=== PATIENT | male | born 1985 | race Caucasian/White ===

== ENCOUNTER 2016-10-03 16:28 | Emergency (ER) | payer OTHER ==
[~2016-10-03] VITALS: Ht 198.1 cm; Wt 156.8 kg
[2016-10-03] VITALS (7 sets, daily range): BP systolic 112–128; BP diastolic 48–83; PULSE 71–130; RESP 12–18; O2SAT 93–95
[~2016-10-03 16:28] MED LIST: AMLO-39 PO; Clindamycin Hcl PO; LISI-608 PO; LORA-303 PO; MELA1TAB11 PO; Nicotine TOPICAL; Trazodone PO; WARF10TA PO
--- NOTE | 2016-10-03 16:41 | ED.REPORT ---
HPI-Chest Pain Under 40 Date of Service Oct 03, 2016 ED Provider: The patient is a 30 year old obese male with history of pulmonary embolisms ( 2012 and 2014) on Coumadin, hypertension, anxiety, and viral meningitis x2, who presents to the emergency department complaining of chest pain that began earlier this morning. The patient states he was not feeling well throughout the week. He has not been eating as much as normal and has felt tired and fatigued. On Tuesday he had a syncope episode after standing. As he was falling to the ground he noticed a severe headache. He felt okay yesterday but was not able to sleep last night. This morning his headache was severe and he developed left- sided chest tightness. He tried to rest throughout the day. He got up to use the restroom this afternoon and the next thing he remembers is waking up in the bathroom with emesis around him. He is unsure if he obtained any injuries during the syncopal episodes. After his first pulmonary embolism he was on Warfarin for about a year and was not on Warfarin when he had the second pulmonary embolism. His last INR check was about 1-2 weeks ago and was in the normal range. Nursing Notes Stated Complaint: CHEST PAIN, PASSED OUT, HX OF PE Chief Complaint: Chest Pain Nursing Notes Reviewed: Yes Allergies: Coded Allergies: cefaclor (Verified Allergy, Intermediate, Rash,Itching,, 07/01/14) Scheduled ([Nicotine]) 1 EA TDSY 1 EA TOPICAL DAILY Lisinopril/HCTZ 20-25 mg (Zestoretic 20-25 mg) 1 Each Tablet 1 EACH PO DAILY Quetiapine Fumarate (Quetiapine Fumarate) 50 Mg Tablet 75 MG PO HS Venlafaxine ER (Venlafaxine ER) 150 Mg Cap.er.24h 150 MG PO DAILY Warfarin Sodium (Coumadin) 10 Mg Tablet 10 MG PO DAILY EXC tuesday Warfarin Sodium (Warfarin Sodium) 10 Mg Tablet 15 MG PO TUESDAY Scheduled PRN Naltrexone (Naltrexone) 50 Mg Tablet 50 MG PO PRN PRN PRN DRINKING General Time Seen by MD: 16:41 Chief Complaint Chest pain Hx Obtained From: Patient, Other family... (mother and father) Arrived By: Walk-in Sudden in Onset?: Yes Onset Occurred: 5 - 8 hours ago Symptom Duration: Since onset Location: : Chest left Quality: Painful Severity: Current: Moderate Severity: Maximum: Severe Recent Healthcare: No recent doctor visit, No recent hospitalization Similar Sx Previous: Yes Risk Factors PERC Rule Heart rate 100 or over, Prior Hx of DVT/PE PERC Result: One or more crit "Yes", PERC rule not satisfied Past Medical History Past Medical History Hx of PE 2011 and Jun 2014 Obese Hx of viral meningitis x2 Anxiety Reports: Hypertension Past Surgical History Knee surgery Family History No diabetes in the family Possible heart disease history in family Smoking History Never Smoker Social History Chews tobacco. Hx of cocaine abuse, has been clean for several months. Alcohol Use: In recovery Drug Use: In recovery, THC Other Social History: Smokeless tobacco, Good social support, Local resident Ambulatory Status Independent Review of Systems Constitutional: Reports: Fatigue Cardiovascular: Reports: Chest pain GI: Reports: Nausea, Vomiting Neurologic: Reports: Change LOC, Dizziness, Headache, Syncope Complete sys rev & neg: except as marked. Physical Exam Initial Vital Signs Vital Signs (First) Date Time Temp Pulse Resp B/P Pulse Ox O2 Delivery O2 Flow Rate FiO2 10/03/16 16:31 37.9 130 115/83 93 10/03/16 16:40 12 Room Air 10/03/16 18:02 2 Initial VS: Reviewed Head / Eyes: Atraumatic, Normocephalic, PERRL ENT: Mucous membranes moist, Conjunctiva normal, No scleral icterus Abdomen / GI: Soft, Non-tender, No guarding, No rebound, No distention Lymphatic: No lymphadenopathy Extremities: Vascular intact, Neuro intact, No swelling, No tenderness Neurologic: Alert, Oriented, Nonfocal Psychiatric: Mood/affect normal, Behavior normal, Normal thought content General/Constitutional: Awake, Alert, Cooperative Respiratory / Chest: Atraumatic, Breath sounds NL, Breath sounds = bilat, No respiratory distress, No rales, No rhonchi, No wheezing, No chest tenderness Cardiovascular: Regular rhythm, Heart sounds NL, No murmurs, No rubs, Pulses = bilaterally Heart Rate / Rhythm: Positive: Tachycardia Meningeal Signs / ROM: Positive: Kernig's positive Skin: Color NL Rash / Lesion Notes: Scattered excoriated lesions Interpretation & Diagnostics Lab Results Interpretation Result Diagram: 10/03/16 1645 10/03/16 1645 Test 10/03/16 16:45 10/03/16 21:49 10/04/16 00:00 White Blood Count 7.4th/mm3 (3.8-10.1) Red Blood Count 5.14mil/mm3 (4.40-5.80) Hemoglobin 14.5g/dL (13.8-17.2) Hematocrit 43.2% (41.0-50.0) Mean Corpuscular Volume 84.0fL (81-100) Mean Corpuscular Hemoglobin 28.2pg (27.0-35.0) Mean Corpuscular Hemoglobin Concent 33.6% (32.0-37.0) Red Cell Distribution Width 13.4% (12.3-15.4) Platelet Count 213bil/L (150-400) Neutrophils (%) (Auto) 83.5% (40-74) Lymphocytes (%) (Auto) 11.7% (14-46) Monocytes (%) (Auto) 3.9% (4-12) Eosinophils (%) (Auto) 0.3% (0-5) Basophils (%) (Auto) 0.1% (0-3) Prothrombin Time 14.8sec (8.1-12.5) Prothromb Time International Ratio 1.37ratio Sodium Level 134mEq/L (134-144) Potassium Level 3.8mEq/L (3.5-5.2) Chloride Level 95mEq/L (97-108) Carbon Dioxide Level 23mmol/L (18-29) Blood Urea Nitrogen 10mg/dL (6-20) Creatinine 1.28mg/dL (0.76-1.27) Estimat Glomerular Filtration Rate 70mL/min (>59) Glucose Level 134mg/dL (60-99) Calcium Level 8.9mg/dL (8.5-10.1) Magnesium Level 1.5mg/dL (1.6-2.6) Total Bilirubin 0.7mg/dL (0.0-1.2) Aspartate Amino Transf (AST/SGOT) 22U/L (0-50) Alanine Aminotransferase (ALT/SGPT) 29U/L (0-44) Alkaline Phosphatase 74U/L (25-150) Troponin T < 0.010ug/L (0.0-0.011) Total Protein 7.4g/dL (6.4-8.4) Albumin 4.0g/dL (3.4-5.0) Hold Price Top Tube Received (Received) CSF Appearance Clear (CLEAR) CSF Color Colorless (COLORLESS) CSF WBC 0/mm3 (0-5) CSF RBC 375/mm3 CSF Mononuclear WBCs % CSF Polynuclear WBCs % CSF Other Cells ECG Interpretation ECG Interpretation: Sinus tachycardia with a rate of 116 Time: 16:44 Interpreted by: ED physician X-Ray Chest Interpretation Chest Xray Interpretation: No acute disease. Interpretation / Wet Read by: Interpret - Radiologist CT Head Interpretation IMPRESSION: No intracranial abnormality. Read by Dr. Arash Nunez CT Chest Interpretation No pulmonary embolism. No acute consolidation. Study type: CT pulm angiogram Interpretation / Wet Read by: Interpret - Radiologist Re-Eval/Medical Decision Source of Hx: Old records Re-Evaluation/Progress #1: Time of Eval: 16:58 Re-Evaluation/Progress Note: Discussed plan for workup. Re-Evaluation/Progress #2: Time of Eval: 19:37 Re-Evaluation/Progress Note: Discussed results and plan for lumbar puncture. Will call radiologist. Re-Evaluation/Progress #3: Time of Eval: 22:17 Re-Evaluation/Progress Note: Rechecked the patient. His headache is still severe. Discussed plan for additional medication. Re-Evaluation/Progress #4: Time of Eval: 22:54 Re-Evaluation/Progress Note: Rechecked the patient. He is resting comfortably. He still complains of a severe headache. Discussed plan for [facility] transfer [place] consult. The patient will either be admitted here or transferred to [facility]. Consultation #1: Requested Call at: 22:58 Call Returned at: 23:07 Note: Spoke with [facility]. Dr. Genaro Brewer will call back. Consultation #2: Call Returned at: 23:59 Systems Security Analyst: Accepts admit Note: Daniella recommends transfer to [facility] [place] for further eval. Counseled Regarding: Diagnosis, Lab results Discharge & Departure Primary Impression: Subarachnoid hemorrhage Additional Impression: Meningitis Disposition: Transfer, Acute Care Facility Receiving Hospital: [facility] Discharge Condition All VS Reviewed: Yes Condition: Stable Referrals: Triston Young MD (PCP) Crit Care Except Billable Proc Time Spent: 30-74 minutes Services Performed: Patient management by me, Time spent at bedside, Reviewing test results, Reviewing imaging, Discussing patient care, Documentation in record, Time with [facility]/surrogate Scribe Attestation Portions of this note were transcribed by Leticia Bolanos. I, Dr. Toribio personally performed the history, physical exam and medical decision-making; I reviewed and confirmed the accuracy of the information in the transcribed note. Signed by: Benji Hudson, 10/03/2016 at 0001. copies to: Triston Young MD, Kirk H MD Oct 03, 2016 16:41 Leticia Bolanos Oct 03, 2016 16:45
[2016-10-03 16:57] LABS: BASOPHILS % (AUTO) 0.1 % (0-3); EOSINOPHILS % (AUTO) 0.3 % (0-5); MONOCYTES % (AUTO) 3.9 % (4-12); Mean Corpuscular Hemoglobin 28.2 pg (27.0-35.0); NEUTROPHILS % (AUTO) 83.5 % (40-74); Platelet Count 213 bil/L (150-400)
[2016-10-03] MEDS ORDERED: VENL150C98 PO (17:02)
[2016-10-03] MEDS ORDERED: NALT50TA PO (17:02)
[2016-10-03] MEDS ORDERED: QUET50TA55 PO (17:02)
[2016-10-03] MEDS ORDERED: WARF10TA4 PO (17:02)
[2016-10-03] MEDS ORDERED: Acetaminophen IV 1,000 MG in IV Premix 1 EACH IV ONE (17:05)
[2016-10-03] MEDS: HYDROmorphone 1 mg/mL Inj IVPUSH PRN ×2 (17:14→20:00)
[2016-10-03 17:29] LABS: INR 1.37 ratio
[2016-10-03 17:35] LABS: Magnesium 1.5 mg/dL (1.6-2.6)
[2016-10-03 17:38] LABS: TROPONIN T < 0.010 ug/L (0.0-0.011)
[2016-10-03] MEDS ORDERED: Ondansetron 2 mg/mL 2 mL Inj ONE (18:10)
[2016-10-03] MEDS ORDERED: 0.9% Sodium Chloride 1,000 ML IV ONE ×2 (19:37→22:19)
[2016-10-03] MEDS: Ondansetron 2 mg/mL 2 mL Inj IVPUSH PRN (20:06)
[2016-10-03 22:18] LABS: APPEARANCE,CSF CLEAR (CLEAR); COLOR,CSF COLORLESS (COLORLESS); WHITE BLOOD CELL,CSF 0 /mm3 (0-5)
[2016-10-03 22:19] LABS: APPEARANCE,CSF CLEAR (CLEAR); COLOR,CSF COLORLESS (COLORLESS); WHITE BLOOD CELL,CSF 0 /mm3 (0-5)
[2016-10-03] MEDS ORDERED: Dexamethasone 10 mg/mL Inj IVPUSH ONE (22:20)
[2016-10-03] MEDS ORDERED: Haloperidol 5 mg/mL Inj IVPUSH ONE (22:20)
[2016-10-03] MEDS ORDERED: MetoCLOpramide 5 mg/mL 2 mL Inj IVPUSH ONE (22:20)
[2016-10-03] MEDS ORDERED: cefTRIAXone Inj 2,000 MG in Dextrose 5% Minibag Plus 50 ML IV ONE (22:55)
[2016-10-04] MEDS: Ondansetron 2 mg/mL 2 mL Inj IVPUSH PRN (00:35)
[2016-10-04 00:52] VITALS: BP 145/81; PULSE 84; RESP 15; O2SAT 97
--- NOTE | 2016-10-04 06:01 | DRSVH ---
PROCEDURE: CT BRAIN WITHOUT CONTRAST ([id number]) INDICATIONS: syncope, hx. of PE TECHNIQUE: Noncontrast 4.5 mm thick angled axial sections acquired from the foramen magnum to the vertex, with c oronal reformats. COMPARISON: None. FINDINGS: Image quality: Excellent. CSF spaces: Basal cisterns are patent. No extra-axial fluid collections. Ventricles are normal in size and shape. Brain: No midline shift. No intracranial masses or hemorrhage. Boss-white matter interface is norm al. Skull and face: Calvarium and visualized facial bones are intact, without suspicious lesions. Sinuses: Mild left maxillary sinus disease IMPRESSION: No acute intracranial process Dictated by: Arash Nunez M.D. on 10/03/2016 at 19:00 Approved by: Arash Nunez M.D. on 10/03/2016 at 19:02
--- NOTE | 2016-10-04 06:01 | DRSVH ---
PROCEDURE: CT ANGIO CHEST PULMONARY EMBOLISM ([id number]) INDICATIONS: syncope, hx. of PE TECHNIQUE: After the administration of intravenous contrast, 2 mm thick sections acquired from the pulmonary api [place] to the posterior costophrenic angles. 3-dimensional maximum intensity projection (MIP) coronal a nd sagittal reformats were then acquired through the thorax. For radiation dose reduction, the follo wing was used: automated exposure control, adjustment of mA and/or kV according to patient size. COMPARISON: None. FINDINGS: Image quality: Suboptimal due to heterogeneous opacification of the pulmonary arteries Pulmonary arteries: Pulmonary arteries are normal in size, and demonstrate no gross intraluminal jinny ling defects to suggest central pulmonary embolism, however limited evaluation of the segmental level pulmonary arteries due to heterogeneous contrast opacification. Lungs and pleura: Lungs are clear. There is scattered atelectasis. No pleural effusions or pneumotho rax. Central and peripheral airways are patent. Mediastinum: Heart size is normal, without pericardial effusion. No mediastinal or hilar adenopathy . Thoracic aorta is normal in caliber and enhancement. Esophagus is normal in caliber, without hiat al hernia. Bones and chest wall: No suspicious bony lesions. Ribs and thoracic spine appear intact throughout. Thyroid gland unremarkable. No axillary or supraclavicular adenopathy. Abdomen: Visualized upper abdominal solid organs appear normal in the early arterial phase of enhanc ement. IMPRESSION: No pulmonary embolism. No acute consolidation. Dictated by: Arash Nunez M.D. on 10/03/2016 at 19:12 Approved by: Arash Nunez M.D. on 10/03/2016 at 19:15
--- NOTE | 2016-10-04 06:01 | DRSVH ---
PROCEDURE: X-RAY CHEST ONE VIEW, PORTABLE ([id number]) INDICATIONS: CHEST PAIN TECHNIQUE: One view of the chest was acquired. COMPARISON: None. FINDINGS: Surgical changes and devices: None. Lungs and pleura: No pleural effusions or pneumothorax. Lungs are clear. Mediastinum: Mediastinal contours appear normal. Heart size is normal. Bones and chest wall: No suspicious bony lesions. Overlying soft tissues appear unremarkable. IMPRESSION: No acute disease. Dictated by: Arash Nunez M.D. on 10/03/2016 at 17:57 Approved by: Arash Nunez M.D. on 10/03/2016 at 17:58
--- NOTE | 2016-10-04 06:02 | DRSVH ---
PROCEDURE: X-RAY LUMBAR PUNCTURE ([id number]) INDICATIONS: headache, syncope TECHNIQUE: The indications, alternatives, benefits, risks, and complications were explained to the patient. Kourtney clemons informed consent was obtained and placed in the chart. The patient was placed in a prone positi on on the fluoroscopy table, and a level was chosen for percutaneous access under fluoroscopic guidan ce. The site was prepped and draped in a sterile fashion. After local anaesthetic, a spinal needle was then used to enter the intrathecal space, with return of cerebrospinal fluid. After obtaining sufficient fluid, the needle was then withdrawn, and a bandage applied to the punctur e site. FINDINGS: Puncture level: L4-L5 Needle: Spinal needle. Opening pressure: Not requested. CSF volume and description: 10 cc of clear CSF Medications: 1% lidocaine for anaesthesia. Complications: None. Laboratories: As ordered by referring clinician. IMPRESSION: Successful fluoroscopically guided lumbar puncture. Dictated by: Arash Nunez M.D. on 10/03/2016 at 21:57 Approved by: Arash Nunez M.D. on 10/03/2016 at 21:58
== END 2016-10-04 00:45 | disposition short-term general hospital (02) ==
LOC: SED 16:28
DX: S06.6X0A Traumatic subarachnoid hemorrhage without loss of consciousness, initial encounter (principal); W18.39XA Other fall on same level, initial encounter; Y93.89 Activity, other specified; Y92.091 Bathroom in other non-institutional residence as the place of occurrence of the external cause; Y99.8 Other external cause status; G03.9 Meningitis, unspecified; I10 Essential (primary) hypertension; Z86.711 Personal history of pulmonary embolism; Z79.01 Long term (current) use of anticoagulants; Z88.8 Allergy status to other drugs, medicaments and biological substances
CPT/HCPCS: 36415; 62270; 70450; 71010; 71275; 77003; 80053; 82948; 83735; 84484; 85025; 85610; 87040; 87070; 87205; 87496; 87498; 87529; 87532; 87653; 87798; 89051; 93005; 96361; 96365; 96375; 96376; 99291; J0131; J0696; J1100; J1170; J1200; J1630; J2405; J2765; J7030; Q9967